=== PATIENT | female | born 2005 ===

== ENCOUNTER → 2025-06-19 13:33 | Outpatient (BNVA) | payer MEDICAID, SELFPAY | PROVIDERS: Visit Provider Nurse Practitioner Women's Health | DX: N92.6 Irregular menstruation, unspecified (principal) | CPT/HCPCS: 82306; 83036; 84402; 84403; 84443 ==

== ENCOUNTER 2025-07-05 12:09 | Outpatient (CLI) | payer MEDICAID, SELFPAY ==
--- NOTE | 2025-07-05 12:45 | USR_ITS ---
PROCEDURE INFORMATION: Exam: US Pelvis Transabdominal, Complete, and US Pelvis Transvaginal, and US Duplex Artery and Vein, Ovaries, Complete, Non-obstetric Exam date and time: 07/05/2025 12:38 PM Age: 19 years old Clinical indication: Menstruation abnormalities; Irregular menstruation; Additional info: N92.6 - irregular menstruation, unspecified. Dysmenorrhea. TECHNIQUE: Imaging protocol: Real-time complete transabdominal and transvaginal pelvic ultrasound (non-obstetric) with image documentation. Transvaginal imaging was used for better evaluation of the endometrium, adnexa, and/or cervix. Real-time duplex ultrasound scan of the arterial and venous flow of the ovaries with B-mode, color Doppler flow and spectral waveform analysis. Duplex exam was performed to evaluate for torsion and other vascular conditions. COMPARISON: No relevant prior studies available. FINDINGS: The uterus measures about 7 cm in length. There is no visible focal myometrial mass. There is no intrauterine fluid. Endometrial thickness is 10 mm. There is no visible/significant free pelvic fluid. The right ovary measures 30 x 26 x 27 mm, estimated volume 11.2 cc. The right ovary appears essentially unremarkable. The left ovary measures 24 x 16 x 19 mm, estimated volume 3.8 cc. The left ovary appears essentially unremarkable. Ovarian blood flow was evaluated with color and spectral Doppler imaging. Arterial and venous blood flow detected within each ovary. Resistance index in the right ovary is 0.49. Resistance index in the left ovary is 0.49. The urinary bladder was not completely evaluated/imaged at this time. Endovaginal scanning provided better visualization/evaluation of the endometrium and ovaries/adnexal regions, as discussed above. US/US pelv w/transvag [id number] IMPRESSION: 1. Essentially unremarkable sonographic appearance of the uterus and ovaries. 2. Blood flow detected in each ovary. 3. Other details discussed above.
== END 2025-07-05 12:10 | disposition home or self-care (01) ==
LOC: RAD 12:12
PROVIDERS: Visit Provider Nurse Practitioner Women's Health
DX: N92.6 Irregular menstruation, unspecified (principal)
CPT/HCPCS: 76830; 76856